=== PATIENT | female | born 1955 | race Caucasian/White ===

== ENCOUNTER 2017-09-29 09:24 | Day surgery (SDC) | payer BC ==
[~2017-09-29] VITALS: Ht 167.6 cm; Wt 60.0 kg
[~2017-09-29 09:24] MED LIST: ONDA4ODT MM; RXONDA4ODT MM
[2017-09-29] MEDS ORDERED: PRAV20 PO (10:40)
== END 2017-09-29 12:00 | disposition home or self-care (01) ==
LOC: ORSCSDS 09:24
PROVIDERS: Surgery
PROC: 0DBH8ZX Excision of Cecum, Via Natural or Artificial Opening Endoscopic, Diagnostic (ICD-10-PCS; principal; 2017-09-29 10:45)
PROC: 0DBK8ZX Excision of Ascending Colon, Via Natural or Artificial Opening Endoscopic, Diagnostic (ICD-10-PCS; principal; 2017-09-29 10:45)
DX: Z12.11 Encounter for screening for malignant neoplasm of colon (principal); D12.2 Benign neoplasm of ascending colon; D12.0 Benign neoplasm of cecum; Z86.010 Personal history of colon polyps; Z79.899 Other long term (current) drug therapy
CPT/HCPCS: 88305; J1200; J7120

== ENCOUNTER 2023-05-18 11:01 | Day surgery (SDC) | payer OTHER ==
[~2023-05-18] VITALS: Ht 165.1 cm; Wt 60.3 kg
[~2023-05-18 11:01] MED LIST changes: +PRAV20 PO
[2023-05-18] MEDS ORDERED: PRAV20 PO (11:47)
[2023-05-18] MEDS ORDERED: PROBIOTIC ACID1 EAC7 PO (11:48)
[2023-05-18] MEDS ORDERED: VITAMIN D5000 UNIT PO (11:48)
[2023-05-18] MEDS ORDERED: WOMEN MULTIVIT1 EAC1 PO (11:48)
[2023-05-18] MEDS ORDERED: MERIBIN5 MG PO (11:49)
--- NOTE | 2023-05-18 13:18 | NUR ---
05/18/23 1318 Nneka Martinez ROPIVACAINE 0.5% 20 MLS MIXED & VERIFIED WITH EPI 0.1 MG (1MG/ML) PER ODRER TO MAKE ROPIVACAINE 0.5% 1:200,000 FOR INJECTION AT OPSITE BY DR JACK.
[2023-05-18 14:26] VITALS: BP 101/56
== END 2023-05-18 15:28 | disposition home or self-care (01) ==
LOC: ORSCSDS 11:01
PROVIDERS: Podiatrist Foot & Ankle Surgery
PROC: 0SGM04Z Fusion of Right Metatarsal-Phalangeal Joint with Internal Fixation Device, Open Approach (ICD-10-PCS; principal; 2023-05-18 12:30)
PROC: 0QP104Z Removal of Internal Fixation Device from Sacrum, Open Approach (ICD-10-PCS; principal; 2023-05-18 12:30)
DX: M20.5X1 Other deformities of toe(s) (acquired), right foot (principal); T84.84XA Pain due to internal orthopedic prosthetic devices, implants and grafts, initial encounter; M21.611 Bunion of right foot; B19.20 Unspecified viral hepatitis C without hepatic coma; E78.5 Hyperlipidemia, unspecified; Z79.899 Other long term (current) drug therapy
CPT/HCPCS: C1713; J0171; J1100; J2250; J2405; J2704; J2795; J3010; J7120

== ENCOUNTER 2023-07-04 17:58 | Emergency (ER) | payer OTHER ==
[~2023-07-04] VITALS: Ht 167.6 cm; Wt 61.7 kg
[~2023-07-04 17:58] MED LIST changes: +MERIBIN5 MG PO; +PROBIOTIC ACID1 EAC7 PO; +VITAMIN D5000 UNIT PO; +WOMEN MULTIVIT1 EAC1 PO
[2023-07-04 18:38] VITALS: BP 119/74
== END 2023-07-04 20:05 | disposition home or self-care (01) ==
LOC: ER 17:58
DX: S86.111A Strain of other muscle(s) and tendon(s) of posterior muscle group at lower leg level, right leg, initial encounter (principal); X58.XXXA Exposure to other specified factors, initial encounter; E78.5 Hyperlipidemia, unspecified; Z88.5 Allergy status to narcotic agent; Z88.0 Allergy status to penicillin; Z88.2 Allergy status to sulfonamides; Z88.8 Allergy status to other drugs, medicaments and biological substances; Z88.4 Allergy status to anesthetic agent; Z88.1 Allergy status to other antibiotic agents; Z91.041 Radiographic dye allergy status; Z91.040 Latex allergy status; Z79.899 Other long term (current) drug therapy
CPT/HCPCS: 93971; 99284-25

== ENCOUNTER → 2023-09-26 | Outpatient (CLI) | payer OTHER ==
[~2023-09-26] MED LIST changes: +Pravastatin Sod40 MG PO
== END | disposition home or self-care (01) ==
LOC: LAB 11:55 → LAB SHORT 11:55
DX: N39.0 Urinary tract infection, site not specified (principal)
CPT/HCPCS: 87077; 87086; 87186

== ENCOUNTER → 2023-10-15 | Outpatient (CLI) | payer OTHER | LOC: LAB SHORT 18:15 → LAB 18:15 | DX: N39.0 Urinary tract infection, site not specified (principal) | CPT/HCPCS: 87077; 87086; 87186 ==